=== PATIENT | female | born 1970 | race Caucasian/White ===

== ENCOUNTER 2017-10-06 07:50 | Inpatient (IN) | payer BC, OTHER ==
[2017-09-14 11:39] VITALS: BMI 34.0
--- NOTE | 2017-09-14 12:15 | PAT Medication Instructions ---
Service Date Sep 14, 2017. Current Home Medication List Albuterol Hfa (Ventolin Hfa), 2 PUFFS INH Q6H PRN for PRN Buprenorphine Hcl-Naloxone Hcl (Suboxone 8-2 Mg), 0.5 TAB SL QAM Bupropion (Wellbutrin Sr), 150 MG PO QAM Citalopram (Citalopram Hydrobromide), 1 TAB PO QAM Clonazepam (Clonazepam), 0.5 MG PO TID Doxycycline Monohydrate (Monodox), 100 MG PO BID Fluticasone Propionate (Nasal) (Flonase Allergy Relief), 2 SPRAYS INTNAS PRN Gabapentin (Neurontin), 300 MG PO TID Ibuprofen (Ibuprofen), 800 MG PO PRN Levothyroxine Sodium (Levothyroxine Sodium), 1 TAB PO QAM Quetiapine Fumarate (Seroquel), 400 MG PO HS Topiramate (Topamax ), 25 MG PO BID Trazodone HCl (Trazodone HCl), 50 MG PO HS PRN for PRN Medication Instructions For Your Scheduled Surgery -Continue as directed: Doxycycline Monohydrate (Monodox), 100 MG PO BID - Hold the following medications 7 days prior to surgery per your surgeon's instructions: Ibuprofen (Ibuprofen), 800 MG PO PRN - Take the following medications the morning of surgery with a sip of water: Levothyroxine Sodium (Levothyroxine Sodium), 1 TAB PO QAM Citalopram (Citalopram Hydrobromide), 1 TAB PO QAM Bupropion (Wellbutrin Sr), 150 MG PO QAM Fluticasone Propionate (Nasal) (Flonase Allergy Relief), 2 SPRAYS INTNAS PRN ( if needed) Gabapentin (Neurontin), 300 MG PO TID Clonazepam (Clonazepam), 0.5 MG PO TID Buprenorphine Hcl-Naloxone Hcl (Suboxone 8-2 Mg), 0.5 TAB SL QAM Albuterol Hfa (Ventolin Hfa), 2 PUFFS INH Q6H PRN for PRN (if needed) - Take the following medications as scheduled the night before surgery: Quetiapine Fumarate (Seroquel), 400 MG PO HS Topiramate (Topamax ), 25 MG PO BID Trazodone HCl (Trazodone HCl), 50 MG PO HS PRN for PRN (if needed) Fluticasone Propionate (Nasal) (Flonase Allergy Relief), 2 SPRAYS INTNAS PRN ( if needed) Gabapentin (Neurontin), 300 MG PO TID Clonazepam (Clonazepam), 0.5 MG PO TID Albuterol Hfa (Ventolin Hfa), 2 PUFFS INH Q6H PRN for PRN (if needed) If you have any questions please call us at [phone] or [phone] or [phone]
[2017-09-14 12:49] LABS: URINE APPEARANCE CLEAR (CLEAR); URINE BILIRUBIN NEG (NEG); URINE COLOR YELLOW; URINE NITRITE NEG (NEG); URINE PH 5.5 (4.5-7.5); UROBILINOGEN NEG (NEG); ZZUR CULT IF INDIC CLEAN CATCH NO
[2017-09-14 12:53] LABS: BASO % 0.3 %; BASO ABS # 0.02 K/uL (0-0.2); COMPLETE YES; EOS % 2.1 %; HEMATOCRIT 39.2 % (37-47); IG% 0.1 %; LYMPH ABS # 2.72 K/uL (1.2-3.4); MEAN CORPUSCULAR HEMOGLOBIN 33.4 pg (25-34); MEAN CORPUSCULAR HGB CONC 33.4 g/dl (32-36); MEAN PLATELET VOLUME 13.6 fL (7.4-10.4); MONO % 5.6 %; NEUT % 51.9 %; PLATELET COUNT 212 K/uL (130-400); RED BLOOD COUNT 3.92 M/uL (4.2-5.4)
[2017-09-14 13:04] LABS: MANUAL MICROSCOPIC REQUIRED? NO; REVIEW REQ? NO
--- NOTE | 2017-09-14 13:12 | DIAGNOSTIC IMAGING REPORT ---
CHEST PREADMISSION(PA/LAT) HISTORY: 47 years-old Female PAT preoperative exam. No acute chest complaints COMPARISON: Chest radiograph 07/22/2014 TECHNIQUE: PA and lateral views of the chest FINDINGS: Cardiomediastinal and hilar silhouettes are within normal limits. No pneumothorax, pleural effusion, focal airspace consolidation or overt pulmonary edema. Bones of the chest are grossly intact. Degenerative changes are seen within the shoulders. IMPRESSION: No acute cardiopulmonary process. The above report was generated using voice recognition software. It may contain grammatical, syntax or spelling errors. Electronically signed by: Jeff Denise M.D. 09/14/2017 1:10 PM Dictated Date/Time: 09/14/2017 1:07 PM
[2017-09-14 13:13] LABS: BUN/CREATININE RATIO 19.6 (10-20); CALCIUM 9.2 mg/dl (8.5-10.1); CREATININE 0.73 mg/dl (0.60-1.20); POTASSIUM 4.1 mmol/L (3.5-5.1)
[~2017-10-06] VITALS: Ht 162.6 cm; Wt 84.5 kg
[2017-10-06] VITALS (9 sets, daily range): BP systolic 115–133; BP diastolic 78–81; PULSE 63–91; TEMP 36.5–37; O2SAT 96–98; Ht 162.6 cm; Wt 84.5 kg
[~2017-10-06 07:50] MED LIST: BUPR-79 PO; BUPR1SUB23 SL; CEFAZOLIN 2000MG IV PUSH 10 ML IV SCH; CITA40TA4 PO; DOXY100C76 PO; DSY100 PO; FLUT0.15 INTNAS; GABA-1218 PO; KLN1X PO; LACTATED RINGER'S 1000ML 1,000 ML IV SCH; LEVO100T7 PO; MTR800 PO; QUET1TAB10 PO; TOPI25TA99 PO; VNTHFA/IN INH
[2017-10-06] MEDS ORDERED: EpHEDrine SULFATE INJ 50 MG/ML AMP IV PRN (09:45)
[2017-10-06] MEDS ORDERED: ATROPINE SULFATE 0.1 MG/ML 5ML SYR IV PRN (09:45)
[2017-10-06] MEDS ORDERED: LABETALOL HCL IV 5 MG/ML 20ML IV PRN (09:45)
[2017-10-06] MEDS ORDERED: ONDANSETRON INJ 2 MG/ML 2 ML VIAL IV PRN ×2 (09:45→14:00)
[2017-10-06] MEDS ORDERED: MEPERIDINE HCL 25 MG/ML CARP IV PRN (09:45)
[2017-10-06] MEDS ORDERED: MIDAZOLAM HCL 1 MG/ML 2ML VIAL ONE (10:28)
[2017-10-06] MEDS ORDERED: FENTANYL CITRATE INJ 50 MCG/1 ML 2 ML VIAL ONE ×7 (10:28→13:40)
--- NOTE | 2017-10-06 10:50 | History & Physical Bridge Note ---
H&P Re-Evaluation Bridge Note: I have examined the patient, reviewed the History & Physical and in the interval since the performance of the History & Physical I have noted the following changes of clinical significance: No changes noted
--- NOTE | 2017-10-06 10:51 | History and Physical ---
History & Physical Date Oct 06, 2017. Chief Complaint Back and leg pain History of Present Illness The patient is a 47 year old female with complaints of back and leg pain Additional History Hepatic Disease: No Endocrine Disorder: No Kidney Disease: No Hypertension: No Heart Disease: No Bleeding Tendencies: No Infectious Diseases: No Allergies Coded Allergies: No Known Allergies (Unverified , 10/06/17) Home Medications Scheduled Buprenorphine Hcl-Naloxone Hcl (Suboxone 8-2 Mg), 0.5 TAB SL QAM Bupropion (Wellbutrin Sr), 150 MG PO QAM Citalopram (Citalopram Hydrobromide), 1 TAB PO QAM Clonazepam (Clonazepam), 0.5 MG PO TID Doxycycline Monohydrate (Monodox), 100 MG PO BID Fluticasone Propionate (Nasal) (Flonase Allergy Relief), 2 SPRAYS INTNAS PRN Gabapentin (Neurontin), 300 MG PO TID Ibuprofen (Ibuprofen), 800 MG PO PRN Levothyroxine Sodium (Levothyroxine Sodium), 1 TAB PO QAM Quetiapine Fumarate (Seroquel), 400 MG PO HS Topiramate (Topamax ), 25 MG PO BID Scheduled PRN Albuterol Hfa (Ventolin Hfa), 2 PUFFS INH Q6H PRN for PRN Trazodone HCl (Trazodone HCl), 50 MG PO HS PRN for PRN Physical Examination Skin: warm/dry, no rash Eyes: normal inspection, EOMI, sclerae normal ENT: normal ENT inspection, pharynx normal Head: normocephalic, atraumatic Neck: supple, no adenopathy, trachea midline Respiratory/Chest: lungs clear, normal breath sounds, no respiratory distress Cardiovascular: regular rate, rhythm, no edema, no murmur Abdomen / GI: normal bowel sounds, non tender Back: normal inspection Extremities: normal inspection, normal range of motion Neurologic/Psych: no motor/sensory deficits, alert, normal reflexes, oriented x 3 Diagnosis Lumbar spinal stenosis Plan of Treatment Removal of instrumentation L3 to S1 with lumbar decompression and fusion L2-3
[2017-10-06] MEDS ORDERED: BUPIVACAINE/EPINEPHRINE 0.5% MPF 1:200,000 30 ML VIAL ONE (11:02)
[2017-10-06] MEDS ORDERED: BACITRACIN 50000 UNIT VIAL ONE (11:02)
[2017-10-06] MEDS ORDERED: HYDROmorphone INJ 2 MG/ML SYR/VIAL ONE ×4 (11:46→13:45)
[2017-10-06] MEDS ORDERED: KETAMINE HCL INJ 50 MG/ML 10 ML VIAL ONE (11:50)
[2017-10-06] MEDS ORDERED: ESMOLOL HCL 10 MG/ML 10 ML VIAL ONE (12:28)
[2017-10-06] MEDS ORDERED: LABETALOL HCL IV 5 MG/ML 20ML IV ONE (12:28)
[2017-10-06] MEDS ORDERED: LIDOCAINE HCL 2% 2 ML VIAL (20MG/ML) ONE (12:28)
[2017-10-06] MEDS ORDERED: METOPROLOL TARTRATE 1 MG/ML VIAL ONE (12:28)
[2017-10-06] MEDS ORDERED: DEXAMETHASONE SOD INJ 4 MG/ML VIAL ONE (12:28)
[2017-10-06] MEDS ORDERED: PROPOFOL IV EMULSION 10 MG/ML 20 ML VIAL IV ONE (12:28)
[2017-10-06] MEDS ORDERED: HydrALAZINE HCL 20 MG/ML VIAL ONE (12:48)
[2017-10-06] MEDS ORDERED: FLOSEAL HEMOSTATIC MATRIX 10ML TOP ONE (13:25)
[2017-10-06] MEDS: SODIUM CHLORIDE 0.9% 1000ML 1,000 ML IV SCH (13:48)
--- NOTE | 2017-10-06 13:48 | DIAGNOSTIC IMAGING REPORT ---
INTRAOPERATIVE LUMBAR SPINE 4 VIEWS CLINICAL HISTORY: L3-S1 REMOVAL/ L2-L3 DECOMPRESSION/FUSION POSS. L3-S1 REFUSION COMPARISON STUDY: 08/18/2014 FINDINGS: 4 intraoperative fluoroscopic spot images are provided for interpretation. 17 seconds of fluoroscopic time was utilized. Again evident are postsurgical changes of a discectomy and interbody fusion at the L5-S1 level. There is now evidence for discectomy and interbody fusion at the L2-3 level. There are pedicle screws present the L2, L3, L4, and S1 levels with adjoining spinal rods. IMPRESSION: Intraoperative fluoroscopic spot films as described above. Electronically signed by: Waylon Villalba M.D. 10/06/2017 1:47 PM Dictated Date/Time: 10/06/2017 1:43 PM
[2017-10-06] MEDS ORDERED: KETOROLAC TROMETHAMINE 30 MG/ML VIAL ONE (13:49)
[2017-10-06] MEDS ORDERED: NEOSTIGMINE METHYLSULFATE 1 MG/ML 10ML VIAL ONE (13:49)
[2017-10-06] MEDS ORDERED: GLYCOPYRROLATE INJ 0.2 MG/ML VIAL ONE (13:49)
[2017-10-06] MEDS ORDERED: ONDANSETRON INJ 2 MG/ML 2 ML VIAL ONE (13:49)
[2017-10-06] MEDS ORDERED: METOCLOPRAMIDE HCL INJ 5 MG/ML 2 ML VIAL ONE (13:55)
--- NOTE | 2017-10-06 13:55 | [facility] Operative Report ---
Operative Report Operative Date Oct 06, 2017. Pre-Operative Diagnosis Lumbar spinal stenosis Post-Operative Diagnosis Lumbar spinal stenosis Procedure(s) Performed #1 removal of posterior segmental instrumentation L3 to S1. #2 expiration of fusion L3 to S1. #3 lumbar decompression medial facetectomies foraminotomies L2 3. #4 posterior spinal fusion L2 3. #5 placement posterior segmental instrumentation L2 to S1. #6 interbody fusion L2 3. #7 placement peek cage 10 x 22 L2 3. #8 placement of locally harvested morcellized autograft in the posterior lateral gutters. #9 placement infuse collagen sponge by mask graft in the posterior lateral gutters and ostial amp in the interbody space. Surgeon Dr. Love [employer] Surgeon(s) none Estimated Blood Loss 325 ml Findings Severe spinal stenosis with far lateral herniated nucleus pulposus on the right L2-3 Specimens a. explanted hardware- spine Description of Procedure Patient was met with preoperatively case discussed all questions addressed. After informed consent was obtained patient was taken to the operative suite underwent intubation placed in a prone position the Huy table on top of the Doyle frame. All bony prominences were well-padded eyes inspected to ensure no external pressure placed upon them. This point the lumbar spines prepped draped nostril fashion. Sharp dissection with the assistance of Bovie cautery was performed onto an exposing the L2 lamina and transverse processes and instrumentation at the L3 to S1 levels bilaterally. I then proceeded to remove the hardware bilaterally explored the fusion mass noting it to be grossly intact. Then performed a complete laminectomy of L2 addressing severe lateral recess and foraminal disease as well as a far lateral disc herniation on the right. After complete decompression pedicle screws are placed in L2-L3 L4 S1 levels bilaterally with the assistance of fluoroscopy in the purposes jonathan placed. Through a transforaminal approach on the right complete discectomy was performed and plate created to subcortical bleeding bone and a 10 x 22 mm peek cage filled with ostial amp tapped in position. The rods were then locked into final position bilaterally. The transverse processes of L2 L3 L4 burred to subcortical bleeding bone. Infuse collagen sponge mask graft locally harvested morcellized autograft was placed in the posterior lateral gutters. 15 round STORMY drain inserted. Incision was then closed with 1 Vicryl fascia 2-0 Vicryl subcutaneous tediously 4 Monocryl for final skin closure Steri-Strips sterile dressings placed patient we can take PACU stable condition. I attest to the content of the Intraoperative Record and any orders documented therein. Any exceptions are noted below.
[2017-10-06] MEDS ORDERED: HYDROmorphone HCL 0.5MG/ML 50 ML CASSETTE ONE (13:57)
[2017-10-06] MEDS ORDERED: hydrOXYzine HCL 25 MG TAB PO PRN (14:00)
[2017-10-06] MEDS ORDERED: FAMOTIDINE 20 MG TAB PO PRN (14:00)
[2017-10-06] MEDS ORDERED: METOCLOPRAMIDE HCL INJ 5 MG/ML 2 ML VIAL IV PRN (14:00)
[2017-10-06] MEDS ORDERED: DO NOT ADMINISTER FLU VACCINE PRN ×3 (14:00)
[2017-10-06] MEDS ORDERED: MAGNESIUM HYDROXIDE SUSP 30 ML UDC PO PRN (14:00)
[2017-10-06] MEDS ORDERED: ACETAMINOPHEN IV 100 ML IV PRN (14:00)
[2017-10-06] MEDS ORDERED: ALBUTEROL HFA 8 GM INHALER INH PRN (14:00)
[2017-10-06] MEDS ORDERED: PROMETHAZINE HCL INJ 12.5 MG in SODIUM CHLORIDE 0.9% 50ML 50 ML IV PRN (14:00)
[2017-10-06] MEDS ORDERED: DO NOT ADMINISTER PNEUMOCOCCAL VACCINE PRN ×2 (14:00)
[2017-10-06] MEDS ORDERED: ALUMINUM/MAGNESIUM SUSP 30 ML UDC PO PRN (14:00)
[2017-10-06] MEDS ORDERED: FLUTICASONE PROPIONATE NA SPR 16 GM BTL PRN (14:00)
[2017-10-06] MEDS ORDERED: BISACODYL 10 MG SUPP PR PRN (14:00)
[2017-10-06] MEDS ORDERED: ACETAMINOPHEN 500 MG TAB PO PRN (14:00)
[2017-10-06] MEDS ORDERED: LORAZEPAM 0.5 MG TAB PO PRN (14:00)
[2017-10-06] MEDS ORDERED: LORAZEPAM INJ 0.5 MG in SYRINGE 0.75 ML IV PRN (14:00)
[2017-10-06] MEDS ORDERED: NALOXONE HCL 0.4 MG/1 ML VIAL/CARP IV PRN ×2 (14:00)
[2017-10-06] MEDS ORDERED: SOD PHOSPHATE/SOD BIPHOSPHATE ENEMA 132 ML BTL PR PRN (14:00)
[2017-10-06] MEDS ORDERED: TRAZODONE HCL 50 MG TAB PO PRN (14:00)
[2017-10-06] MEDS ORDERED: PROMETHAZINE HCL INJ 25 MG in SODIUM CHLORIDE 0.9% 50ML 50 ML IV ONE (14:15)
[2017-10-06] MEDS ORDERED: NURSING VERBAL MED ORDER ONE (14:15)
[2017-10-06] MEDS: FENTANYL CITRATE INJ 50 MCG/1 ML 2 ML VIAL IV PRN ×6 (14:15→14:40)
[2017-10-06] MEDS: HYDROmorphone INJ 1 MG/ML SYR IV PRN ×4 (14:50→15:05)
--- NOTE | 2017-10-06 14:50 | Anesthesiology Progress Note ---
Anesthesia Post Op Note Date & Time Oct 06, 2017 at 14:50 Vital Signs Pain Intensity: 10 Vital Signs Past 12 Hours Date Time Temp Pulse Resp B/P (MAP) Pulse Ox O2 Delivery O2 Flow Rate FiO2 10/06/17 14:16 67 20 10/06/17 14:16 67 20 151/98 99 10/06/17 14:11 68 24 10/06/17 14:11 69 24 146/94 98 10/06/17 14:06 74 17 10/06/17 14:06 74 17 150/96 99 10/06/17 14:02 110/91 10/06/17 14:01 79 24 98 10/06/17 14:01 79 24 10/06/17 13:56 36.4 83 14 146/96 (100) 99 Oxymask 10 10/06/17 13:56 83 19 146/96 99 10/06/17 13:56 83 19 10/06/17 08:33 36.6 63 18 115/78 97 Room Air Notes Mental Status: alert / awake / arousable, participated in evaluation Pt Amnestic to Procedure: Yes Nausea / Vomiting: adequately controlled Pain: adequately controlled Airway Patency, RR, SpO2: stable & adequate BP & HR: stable & adequate Hydration State: stable & adequate Anesthetic Complications: no major complications apparent
[2017-10-06] MEDS: HYDROmorphone HCL 0.5MG/ML 50 ML CASSETTE IV PRN ×2 (15:55→23:24)
[2017-10-06] MEDS: LACTATED RINGER'S 1000ML 1,000 ML IV SCH ×2 (17:28→22:43)
[2017-10-06] MEDS: CEFAZOLIN IV 2,000 MG in SYRINGE 0 ML IV SCH (20:30)
[2017-10-06] MEDS: GABAPENTIN 300 MG CAP PO SCH (20:31)
[2017-10-06] MEDS: DEXAMETHASONE INJ 6 MG in SYRINGE 0 ML IV SCH (20:31)
[2017-10-06] MEDS: DOCUSATE SODIUM/SENNA 50/8.6MG TAB PO SCH (20:31)
[2017-10-06] MEDS: TOPIRAMATE 25 MG TAB PO SCH (20:31)
[2017-10-06] MEDS: QUETIAPINE FUMARATE 200 MG TAB PO SCH (20:31)
[2017-10-06] MEDS: DOXYCYCLINE HYCLATE 100 MG CAP PO SCH (20:32)
[2017-10-06] MEDS: CLONAZEPAM 1 MG TAB PO SCH (20:35)
[2017-10-07 02:53] VITALS: BP 106/67; PULSE 89; TEMP 37.1; O2SAT 97
[2017-10-07] MEDS: CEFAZOLIN IV 2,000 MG in SYRINGE 0 ML IV SCH (04:26)
[2017-10-07] MEDS: DEXAMETHASONE INJ 6 MG in SYRINGE 0 ML IV SCH ×2 (04:26→12:31)
[2017-10-07] MEDS: LACTATED RINGER'S 1000ML 1,000 ML IV SCH (04:27)
[2017-10-07] MEDS: LEVOTHYROXINE 100 MCG TAB PO SCH (05:39)
[2017-10-07] MEDS ORDERED: NURSING DECISION MEDICATION ORDER SCH (05:45)
[2017-10-07] MEDS ORDERED: OXYCODONE HCL IR 5 MG TAB (IMMEDIATE RELEASE) PO PRN (06:00)
[2017-10-07] MEDS ORDERED: HYDROmorphone INJ 0.5 MG/0.5 ML SYR IV PRN (06:00)
[2017-10-07 07:05] VITALS: BP 111/64; PULSE 101; TEMP 37.1; O2SAT 94
[2017-10-07 07:20] LABS: COMPLETE YES; IG% 0.3 %; LYMPH % 6.4 %; MEAN CELL VOLUME 98.2 fL (80-100); MEAN CORPUSCULAR HEMOGLOBIN 34.2 pg (25-34); MEAN CORPUSCULAR HGB CONC 34.8 g/dl (32-36); MEAN PLATELET VOLUME 12.2 fL (7.4-10.4); MONO % 1.5 %; NEUT % 91.8 %; PLATELET COUNT 237 K/uL (130-400); RED BLOOD COUNT 3.36 M/uL (4.2-5.4)
[2017-10-07 07:52] LABS: BUN/CREATININE RATIO 8.1 (10-20); CALCIUM 8.5 mg/dl (8.5-10.1); CREATININE 0.95 mg/dl (0.60-1.20); POTASSIUM 3.8 mmol/L (3.5-5.1)
[2017-10-07] MEDS: DOXYCYCLINE HYCLATE 100 MG CAP PO SCH ×2 (09:44→21:39)
[2017-10-07] MEDS: TOPIRAMATE 25 MG TAB PO SCH ×2 (09:44→21:39)
[2017-10-07] MEDS: GABAPENTIN 300 MG CAP PO SCH ×3 (09:44→21:39)
[2017-10-07] MEDS: BuPROPion SR 150 MG TABCR PO SCH (09:44)
[2017-10-07] MEDS: CLONAZEPAM 1 MG TAB PO SCH ×3 (09:45→21:40)
[2017-10-07] MEDS: CITALOPRAM 40 MG TAB PO SCH (09:45)
[2017-10-07 11:51] VITALS: BP 113/78; PULSE 86; TEMP 37.2; O2SAT 96
--- NOTE | 2017-10-07 13:24 | Progress Note ---
Progress Note Date of Service Oct 07, 2017. Progress Note Patient is postop day #1. Her back pain is controlled. Leg symptoms are markedly improved. On exam she is good strength testing appears comfortable. Assessment status post lumbar decompression fusion replant this time continue to advance physical therapy and her bowel regimen anticipate home tomorrow or Thursday.
[2017-10-07] MEDS ORDERED: RXC5 PO (13:26)
--- NOTE | 2017-10-07 13:27 | Discharge Instructions ---
Discharge Instructions Date of Service Oct 07, 2017. Admission Reason for Admission: Lumbar Spinal Stenosis Discharge Discharge Diagnosis / Problem: lumbar spinal stenosis Discharge Goals Goal(s): Improve function Activity Recommendations Activity Limitations: per Instructions/Follow-up section . Instructions / Follow-Up Instructions / Follow-Up ACTIVITY RECOMMENDATIONS: SELF CARE INSTRUCTIONS AFTER THORACIC/LUMBAR FUSIONS 1. You may walk to your tolerance. It is good exercise for your legs and back. Expect some back and intermittent leg aches and pains. 2. You may perform "counter-top" level activities (make a sandwich, arlene with a project, etc.). 3. No bending or lifting of more than 10 pounds or back twisting of any nature (roll like a log when turning in bed). 4. You may ride in a car for 20-30 minutes at a time. No driving until after your first visit with your doctor. 5. Frequent changes of position and restricting sitting to 30 minutes at a time will help limit the amount of back spasms and stiffness you may experience. 6. You may discontinue the use of ambulatory aids (cane, crutches, etc.) once your strength and confidence allow. 7. You may medical assisting program director the shower and let water strike your incision when you arrive home at least once daily. Do not take a tub bath, sit in a hot tub or go into a swimming pool until after your first recheck in the office. SPECIAL CARE INSTRUCTIONS: VERY IMPORTANT TO READ AND REVIEW A. Your surgical incision has been closed with a cosmetic suture under the skin that will dissolve in about 6 weeks. In 14 days, you can use a pair of clean scissors and cut the suture that is left outside of the skin at the ends of your incision. 1. The small skin tapes can be removed 7 days after surgery if they have not fallen off by that point. 2. You may keep the wound open to air as much as possible to promote healing after post-op day number 5 unless told otherwise by your doctor. 3. If you think the wound looks like it is becoming infected (redness or worsening drainage) and/or you are experiencing fever, chill or worsening back pain and muscle spasms, contact the office so that we may evaluate you as soon as possible. B. Complications are uncommon, but please contact us if you have any signs or symptoms of: 1. wound infection (fever higher than 102.5 degrees F, redness, separation of wound, drainage, or increasing pain from the incision) 2. blood clots in legs (pain, swelling, redness and warmth in legs) 3. urinary tract infection (fever higher than 102.5 degrees F, burning upon urination or increased frequency of urination) 4. nerve problems (inability to walk on your toes or heels, numbness, loss of bowel or bladder control) 5. any other symptoms that concern you C. Please call the office at if you have any concerns or questions about your operation or recovery. D. No smoking! Smoking drastically decreases the chance of a solid fusion. E. Do not take any anti-inflammatory medications (Indocin, Advil, Motrin, Aspirin, Naprosyn, etc.) as these may inhibit the chance of a solid fusion. Tylenol is okay to take for pain. MANAGING PAIN AFTER SPINAL SURGERY 1. Narcotic medication is intended for short-term use and will be provided for surgical pain. Surgical pain usually lasts for a period of 4-6 weeks. Narcotic medication includes Percocet, Vicodin, Darvocet, Tylenol #3 or Lortab. 2. Longer-term pain is more appropriately treated with non-narcotic medication such as Tylenol ES. 3. Muscle spasm is not appropriately treated with narcotics. Muscle relaxers such as Soma, Flexeril or Skelaxin can be used along with Tylenol ES. 4. Remember that we all live with some "aches and pains". This is not unusual or uncommon after an injury or as we get older. a. Back pain is expected and may include muscle spasms for 4 to 6 weeks after surgery. The pain should gradually improve. If the pain worsens for no apparent reason, please contact the office. b. Intermittent leg pain may also be experienced and should not be concerned about unless it worsens for no apparent reason. If so, please contact the office. 5. We will provide appropriate medication within the normal guidelines of their prescribed use. We will also be very cautious and aware of potential abuse and extended duration of patients' medication needs. a. Pain medications are for your comfort and to assist with sleep and rest so that the tissue can heal. They are not provided in order to return to normal activity and should not be used through the day. To do so or worsening pain at night can result from ongoing tissue damage and development of tolerance to the prescribed medicine. 6. Please allow 2-3 days to process refills. Prescriptions will not be mailed but must be picked up at the office. FOLLOW UP VISIT: Keep your scheduled follow-up appointment. Any questions, please call the office at . Current Hospital Diet Patient's current hospital diet: Regular Diet Discharge Diet Recommended Diet: Regular Diet Procedures Procedures Performed: #1 removal of posterior segmental instrumentation L3 to S1. #2 expiration of fusion L3 to S1. #3 lumbar decompression medial facetectomies foraminotomies L2 3. #4 posterior spinal fusion L2 3. #5 placement posterior segmental instrumentation L2 to S1. #6 interbody fusion L2 3. #7 placement peek cage 10 x 22 L2 3. #8 placement of locally harvested morcellized autograft in the posterior lateral gutters. #9 placement infuse collagen sponge by mask graft in the posterior lateral gutters and ostial amp in the interbody space. Pending Studies Studies pending at discharge: no Medical Emergencies . Who to Call and When: Medical Emergencies: If at any time you feel your situation is an emergency, please call 911 immediately. . Non-Emergent Contact Non-Emergency issues call your: Primary Care Provider . "Provider Documentation" section prepared by Moses Love. . VTE Core Measure Inpt VTE Proph given/why not?: Miko Rome, VANDANA's
[2017-10-07] MEDS: SODIUM CHLORIDE 0.9% 1000ML 1,000 ML IV SCH (13:45)
--- NOTE | 2017-10-07 14:22 | Anesthesiology Progress Note ---
Anesthesia Post Op Note Date & Time Oct 07, 2017 at 14:21 Vital Signs Vital Signs Past 12 Hours Date Time Temp Pulse Resp B/P (MAP) Pulse Ox O2 Delivery O2 Flow Rate FiO2 10/07/17 11:51 37.2 86 18 113/78 (90) 96 Room Air 0.0 10/07/17 08:05 Room Air 10/07/17 07:05 37.1 101 16 111/64 (80) 94 Room Air 10/07/17 02:53 37.1 89 15 106/67 (80) 97 Room Air Notes Mental Status: alert / awake / arousable, participated in evaluation Pt Amnestic to Procedure: Yes Nausea / Vomiting: adequately controlled Pain: adequately controlled Airway Patency, RR, SpO2: stable & adequate BP & HR: stable & adequate Hydration State: stable & adequate Anesthetic Complications: no major complications apparent
[2017-10-07] MEDS: HYDROmorphone HCL 0.5MG/ML 50 ML CASSETTE IV PRN ×2 (15:03→23:12)
[2017-10-07 15:14] VITALS: BP 105/59; PULSE 88; TEMP 37; O2SAT 92
[2017-10-07] MEDS: DOCUSATE SODIUM/SENNA 50/8.6MG TAB PO SCH (21:39)
[2017-10-07] MEDS: QUETIAPINE FUMARATE 200 MG TAB PO SCH (21:40)
[2017-10-07 23:55] VITALS: BP 112/65; PULSE 89; TEMP 36.7; O2SAT 95
[2017-10-08 03:30] VITALS: BP 117/66; PULSE 72; TEMP 36.5; O2SAT 94
[2017-10-08 06:03] VITALS: BP 104/65; PULSE 92; TEMP 36.8; O2SAT 94
[2017-10-08] MEDS: POLYETHYLENE (MIRALAX) 17 GM PACK PO SCH ×2 (06:11→12:23)
[2017-10-08] MEDS: LEVOTHYROXINE 100 MCG TAB PO SCH (06:11)
[2017-10-08] MEDS: CLONAZEPAM 1 MG TAB PO SCH (07:59)
[2017-10-08] MEDS: BuPROPion SR 150 MG TABCR PO SCH (07:59)
[2017-10-08] MEDS: GABAPENTIN 300 MG CAP PO SCH (07:59)
[2017-10-08] MEDS: CITALOPRAM 40 MG TAB PO SCH (08:00)
[2017-10-08] MEDS ORDERED: NURSING VERBAL MED ORDER ONE (08:15)
--- NOTE | 2017-10-08 08:36 | Discharge Summary ---
Orthopedic Discharge Summary Admission Date/Reason Oct 06, 2017 at 13:51 Lumbar Spinal Stenosis. Discharge Date/Disposition Oct 08, 2017 Home Diagnosis Principal Diagnosis: Lumbar spinal stenosis Admission Physical Exam As per Admitting History & Physical. Hospital Course Patient underwent lumbar decompression fusion trollers well and taken to the orthopedic floor postoperatively. Postoperative day #1 she did wonderfully walking well leg pain root. She progressed to postoperative day #2. STORMY drain decreasing purply. Subside discharged home. Discharge orders and instructions found the chart for further review. Discharge Instructions Please refer to the electronic Patient Visit Report (Discharge Instructions) for additional information.
[2017-10-08] MEDS: DOXYCYCLINE HYCLATE 100 MG CAP PO SCH (09:14)
[2017-10-08] MEDS: TOPIRAMATE 25 MG TAB PO SCH (09:14)
[2017-10-08 10:05] VITALS: BP 104/65; PULSE 92; TEMP 36.8; O2SAT 94
== END 2017-10-08 14:05 | disposition home or self-care (01) | DRG 460 ==
LOC: C.ACU 07:50 → C.3E 13:51 → ENRESERV 14:44
PROVIDERS: ADMIT Orthopaedic Surgery Orthopaedic Surgery of the Spine; ATTEND Orthopaedic Surgery Orthopaedic Surgery of the Spine
PROC: 0SG00AJ Fusion of Lumbar Vertebral Joint with Interbody Fusion Device, Posterior Approach, Anterior Column, Open Approach (ICD-10-PCS; principal; 2017-10-06 10:15)
PROC: 01NB0ZZ Release Lumbar Nerve, Open Approach (ICD-10-PCS; principal; 2017-10-06 10:15)
PROC: 0SP00JZ Removal of Synthetic Substitute from Lumbar Vertebral Joint, Open Approach (ICD-10-PCS; principal; 2017-10-06 10:15)
PROC: 0SG1071 Fusion of 2 or more Lumbar Vertebral Joints with Autologous Tissue Substitute, Posterior Approach, Posterior Column, Open Approach (ICD-10-PCS; principal; 2017-10-06 10:15)
PROC: 0ST20ZZ Resection of Lumbar Vertebral Disc, Open Approach (ICD-10-PCS; principal; 2017-10-06 10:15)
DX: M48.06 Spinal stenosis, lumbar region (principal); M51.26 Other intervertebral disc displacement, lumbar region; J06.9 Acute upper respiratory infection, unspecified; G62.9 Polyneuropathy, unspecified; E03.9 Hypothyroidism, unspecified; F31.9 Bipolar disorder, unspecified; F41.9 Anxiety disorder, unspecified; B18.2 Chronic viral hepatitis C; F17.200 Nicotine dependence, unspecified, uncomplicated; E66.9 Obesity, unspecified; Z68.32 Body mass index [BMI] 32.0-32.9, adult; Z98.1 Arthrodesis status; Z86.14 Personal history of Methicillin resistant Staphylococcus aureus infection; Z79.891 Long term (current) use of opiate analgesic; Z79.899 Other long term (current) drug therapy